=== PATIENT | male | born 1935 | race Caucasian/White ===

== ENCOUNTER → 2023-01-07 | Outpatient (CLI) | payer OTHER ==
[2023-01-07 09:53] LABS: Source, Urine Clean Catch
[2023-01-07 12:44] LABS: Bilirubin, Urine Neg (Neg); Blood, Urine 2+ (Neg); Glucose Qualitative, Urine 1+ (Neg); Ketones, Urine Neg (Neg); Leukocyte Esterase, Urine 3+ (Neg); Nitrite, Urine Neg (Neg); Protein, Urine 3+ (Neg); Urobilinogen, Urine NORM (Normal)
[2023-01-07 12:57] LABS: Appearance, Urine Hazy (Clear); Bacteria Rare /hpf; Color, Urine Yellow (P-Yellow); Squamous Epithelial Cells Rare /hpf (Few)
== END | disposition home or self-care (01) ==
LOC: LAB SHORT 09:00 → LAB 09:00
PROVIDERS: Nurse Practitioner Family
DX: I10 Essential (primary) hypertension (principal)
CPT/HCPCS: 81001; 87077; 87086; 87186

== ENCOUNTER 2023-01-19 16:08 | Inpatient (IN) | payer OTHER ==
[~2023-01-19] VITALS: Ht 182.9 cm; Wt 94.1 kg
[2023-01-19] MEDS ORDERED: LOSARTAN-HCTZ1 EACH PO (16:41)
[2023-01-19] MEDS ORDERED: AMLO5 PO (16:41)
[2023-01-19] MEDS ORDERED: ALLOPURINOL100 MG PO (16:41)
[2023-01-19] MEDS ORDERED: LOSARTAN-HCTZ1 EAC5 PO (16:41)
[2023-01-19 21:34] VITALS: BP 109/93
--- NOTE | 2023-01-19 23:38 | NUR ---
ADMIT NOTE 87 YR OLD MALE ADMITTED TO FLOOR FROM THE ED WITH DX OF ESRD. ED RN REPORTED PT HERE TO PLACE A DIALYSIS ACCESS IN THE AM. WILL BE NPO AFTER 0000. ALERT AND ORIENTED X 4. SOME WEAKNES, AGREE'S TO USE CALL LIGHT IF NEEDS TO GET OOB. ORIENTED TO USE OF CALL LIGHT. VSS. AFFECT CHEERFUL. VOICED HARD OF HEARING. CALL LIGHT IN REACH
[2023-01-20] VITALS (14 sets, daily range): BP systolic 109–177; BP diastolic 56–85
[2023-01-20 05:56] LABS: BASOPHILS ABSOLUTE AUTO 0.02 K/mm3 (0.00-0.23); BASOPHILS PERCENT AUTO 0 % (0-2); EOSINOPHILS ABSOLUTE AUTO 0.24 K/mm3 (0.00-0.68); EOSINOPHILS PERCENT AUTO 3 % (0-6); Hematocrit 29.2 % (37.0-53.0); Hemoglobin 9.6 g/dL (13.5-17.5); IMMATURE GRAN ABSOLUTE AUTO 0.04 K/mm3 (0.00-0.10); IMMATURE GRAN PERCENT AUTO 1 % (0-1); LYMPHOCYTES ABSOLUTE AUTO 0.93 K/mm3 (0.84-5.20); LYMPHOCYTES PERCENT AUTO 12 % (21-46); MONOCYTES ABSOLUTE AUTO 0.81 K/mm3 (0.16-1.47); MONOCYTES PERCENT AUTO 10 % (4-13); Mean Corpuscular HGB 30.6 pg (26.0-34.0); Mean Corpuscular HGB Conc 32.9 g/dL (31.5-36.5); Mean Corpuscular Volume 93 fL (80-100); Mean Platelet Volume 11.5 fL (9.1-12.4); NEUTROPHILS ABSOLUTE AUTO 6.04 K/mm3 (1.96-9.15); NEUTROPHILS PERCENT AUTO 75 % (41-73); Platelet Count 161 K/mm3 (150-400); RDW Standard Deviation 47.6 fL (35.1-46.3); Red Blood Cell Count 3.14 M/mm3 (4.30-5.90); White Blood Cell Count 8.08 K/mm3 (4.00-11.30)
[2023-01-20 07:00] LABS: Albumin, Blood 3.2 g/dL (3.4-5.0); Bilirubin, Total 0.4 mg/dL (0.1-1.0); Bun/Creatinine Ratio 12.2 (12.0-20.0); Calcium, Blood 8.6 mg/dL (8.5-10.1); Creatinine, Blood 7.97 mg/dL (0.60-1.20); Globulin, Blood 3.3 g/dL (2.2-4.0); Potassium, Blood 5.2 mmol/L (3.5-5.5); Total Protein, Blood 6.5 g/dL (6.4-8.2)
--- NOTE | 2023-01-20 17:35 | NUR ---
SHIFT SUMMARY A&OX3, CONFUSED, COOPERATIVE WITH CARE. PT REPORTED THAT HE SEES BEES ON THE CEILING AND THAT THEY ARE CRAWLING AROUND. HARD OF HEARING. DENIES ANY PAIN, CP/PRESSURE, DIZZINESS, HEADACHE, OR SOB. TELE REPORTS SINUS WITH BIGEMINAL PVC'S. PATIENT GOT AN IJV DIALYSIS CATHETER PLACED AND IS CURRENTLY RECEIVING DIALYSIS AT BEDSIDE. FAMILY PRESENT. PATIENT IS EATING DINNER. BED IN LOWEST POSITION. CALL LIGHT WITHIN REACH.
--- NOTE | 2023-01-20 19:19 | NUR ---
DIALYSIS COMPLETED. DIALYSIS NURSE VOICED SHE WOULD BE VACK IN THE AM. NO C/O PER PT. CALL LIGHT IN REACH
[2023-01-21] VITALS (18 sets, daily range): BP systolic 93–181; BP diastolic 57–83
--- NOTE | 2023-01-21 03:09 | NUR ---
DIESEL MECHANIC SUMMARY VSS. HAD DIALYSIS EARLIER IN THE DAY, POST PLACEMENT OF DIALYSIS PORT. NOTED VERBALIZATION OF SOME CONFUSION. BED ALARM ON FOR SAFETY REASONS. ANTIBIOTICS ADMINISTERED - SEE MAR FOR DETAILS. HOB ELEVATED. HAS BEEN RESTING QUIETLY WITH FEW INTERRUPTIONS THIS SHIFT. CALL LIGHT IN REACH. WILL CONTINUE TO MONITOR. DIALYSIS NURSE VOICED THAT SHE WOULD BE BACK IN THE AM APPARENTLY FOR ANOTHER EPISODE OF DIALYSIS.
[2023-01-21 06:01] LABS: Hematocrit 30.3 % (37.0-53.0)
[2023-01-21 06:35] LABS: Albumin, Blood 3.1 g/dL (3.4-5.0); Anion Gap 9 mmol/L (6-16); Blood Urea Nitrogen 70 mg/dL (8-24); Bun/Creatinine Ratio 10.7 (12.0-20.0); CO2, Blood 23 mmol/L (21-32); Calcium, Blood 8.5 mg/dL (8.5-10.1); Chloride, Blood 113 mmol/L (98-108); Creatinine, Blood 6.56 mg/dL (0.60-1.20); Glomerular Filtration Rate 8 (60-); Glucose, Blood 101 mg/dL (70-99); Magnesium, Blood 2.2 mg/dL (1.6-2.4); Phosphorus, Blood 6.1 mg/dL (2.5-4.9); Potassium, Blood 4.4 mmol/L (3.5-5.5); Sodium, Blood 145 mmol/L (136-145)
[2023-01-21 07:33] LABS: BASOPHILS ABSOLUTE AUTO 0.03 K/mm3 (0.00-0.23); BASOPHILS PERCENT AUTO 0 % (0-2); EOSINOPHILS ABSOLUTE AUTO 0.18 K/mm3 (0.00-0.68); EOSINOPHILS PERCENT AUTO 2 % (0-6); Hematocrit 30.3 % (37.0-53.0); Hemoglobin 10.1 g/dL (13.5-17.5); IMMATURE GRAN ABSOLUTE AUTO 0.04 K/mm3 (0.00-0.10); IMMATURE GRAN PERCENT AUTO 1 % (0-1); LYMPHOCYTES ABSOLUTE AUTO 0.95 K/mm3 (0.84-5.20); LYMPHOCYTES PERCENT AUTO 12 % (21-46); MONOCYTES ABSOLUTE AUTO 0.92 K/mm3 (0.16-1.47); MONOCYTES PERCENT AUTO 12 % (4-13); Mean Corpuscular HGB 30.5 pg (26.0-34.0); Mean Corpuscular HGB Conc 33.3 g/dL (31.5-36.5); Mean Corpuscular Volume 92 fL (80-100); Mean Platelet Volume 11.6 fL (9.1-12.4); NEUTROPHILS ABSOLUTE AUTO 5.88 K/mm3 (1.96-9.15); NEUTROPHILS PERCENT AUTO 73 % (41-73); Platelet Count 163 K/mm3 (150-400); RDW Coefficient Variation 14.1 % (11.7-14.2); RDW Standard Deviation 47.1 fL (35.1-46.3); Red Blood Cell Count 3.31 M/mm3 (4.30-5.90)
[2023-01-21 07:58] LABS: Anion Gap 11 mmol/L (6-16); Blood Urea Nitrogen 67 mg/dL (8-24); Bun/Creatinine Ratio 10.3 (12.0-20.0); CO2, Blood 22 mmol/L (21-32); Calcium, Blood 8.5 mg/dL (8.5-10.1); Chloride, Blood 112 mmol/L (98-108); Creatinine, Blood 6.51 mg/dL (0.60-1.20); Glomerular Filtration Rate 8 (60-); Glucose, Blood 97 mg/dL (70-99); Phosphorus, Blood 5.8 mg/dL (2.5-4.9); Potassium, Blood 4.1 mmol/L (3.5-5.5); Sodium, Blood 145 mmol/L (136-145)
--- NOTE | 2023-01-21 16:51 | NUR ---
SHIFT SUMMARY- PT IS A/O, PLESANT AND COOPERATIVE. HE IS EATING AND DRINKING WELL. HE RECIEVED DIALYSIS THIS SHIFT. WAS UNSTEADY AFTERWARDS. HE WENT FOR IMAGING THIS AFTERNOON. HIS BED IS IN THE LOW POSITION AND CALL LIGHT IS WITHIN REACH.
[2023-01-22] VITALS (15 sets, daily range): BP systolic 104–164; BP diastolic 23–83
--- NOTE | 2023-01-22 05:44 | NUR ---
PT A&O x3-4, FORGETFUL AT TIMES AND REPEATS THE SAME QUESTION. PT [facility] [place], PT STATED THAT HE DIDN'T BRING HIS HEARING AIDS TO THE HOSPITAL. PT SLEPT ON AND OF THROUGHOUT THE NIGHT. NO C/O PAIN OR DISCOMFORT. PT ON TELEMETRY, PT SR AT 65 BPM. PT CALLS APPROPRIATELY, ABLE TO MAKE NEEDS KNOWN. PT TRANSFERS WITH 1P SBA TO BSC. PT CONTINENT OF B/B. PT C/O LIGHTHEADEDNESS AT BEGNNING OF SHIFT. INCREASED WEAKNESS NOTED. BED ALARM TURNED ON, PT WEARING NON-SKID GRIPPER SOCKS. CALL LIGHT WITHIN REACH, WCTM.
[2023-01-22 06:28] LABS: Hematocrit 31.3 % (37.0-53.0); Hemoglobin 10.3 g/dL (13.5-17.5)
[2023-01-22 06:57] LABS: Albumin, Blood 3.1 g/dL (3.4-5.0); Anion Gap 8 mmol/L (6-16); Blood Urea Nitrogen 54 mg/dL (8-24); CO2, Blood 28 mmol/L (21-32); Calcium, Blood 8.6 mg/dL (8.5-10.1); Chloride, Blood 105 mmol/L (98-108); Creatinine, Blood 6.01 mg/dL (0.60-1.20); Glomerular Filtration Rate 9 (60-); Glucose, Blood 101 mg/dL (70-99); Magnesium, Blood 2.2 mg/dL (1.6-2.4); Phosphorus, Blood 5.7 mg/dL (2.5-4.9); Potassium, Blood 3.9 mmol/L (3.5-5.5); Sodium, Blood 141 mmol/L (136-145)
[2023-01-22 09:43] LABS: Influenza A, PCR NEGATIVE (NEGATIVE); Influenza B, PCR NEGATIVE (NEGATIVE); Resp Syncytial Virus, PCR NEGATIVE (NEGATIVE); SARS-Cov-2 (COVID-19) PCR, MMC NEGATIVE (NEGATIVE)
--- NOTE | 2023-01-22 17:04 | NUR ---
SHIFT SUMMARY; PATIENT TRANSFERRED TO ROOM 349 LATE THIS AFTERNOOON. REPORT FROM ROSSY REGALADO. PATIENT EXTREMELY HARD OF HEARING. SMILES AT STAFF AND JOKES HE IS AO X 4 ON ARRIVAL. VITAL SIGNS SHOW PULSE OF 38-84. PATIENT IS ASYMPTOMATIC. REMAINS ON TELE. NO SKIN ISSUES NOTED. PER REPORT JASSON IS WAITING FOR DIALYSIS BED AND FOR HIS HEPATITIS SCREENING TO COME BACK FROM SEND OUT LAB.
--- NOTE | 2023-01-22 17:43 | NUR ---
SHIFT SUMMARY- PT WENT FOR DIALYSIS THIS MORNING. AWAITING A CHAIR FOR DIALYSIS. HE IS EATING AND DRINKING WELL. THIS AFTERNOON, PT BECAME IMPULSIVE AND WAS TRYING TO GET OUT OF BED WITHOUT CALLING, HE WAS TRANSFERED TO THE SCU FOR CLOSER OBSERVAION. CONCERNS ABOUT HIM FALLING DUE TO DIZZINESS AFTER DIALYSIS.
[2023-01-22 22:22] LABS: Protein, Urine Quantitative 234.3 mg/dL (0.0-11.9)
[2023-01-23 00:09] LABS: HBSAG SCREEN Negative (Negative); HCV AB Non Reactive (Non Reactive); HEP A AB, IGM Negative (Negative); HEP B CORE AB, IGM Negative (Negative)
[2023-01-23 03:41] VITALS: BP 172/81
[2023-01-23 03:48] VITALS: BP 151/68
--- NOTE | 2023-01-23 03:56 | NUR ---
REPORT RECEIVED VERIFIED VERY PLEASANT MAN WHO IS VERY [place], CALLS APPROPRIATLY AND CALLS WHEN NEEDING TO USE THE BATHROOM. RIGHT CHEST WALL CATH INTACT. 0300 ASSISTED PT TO BATHROOM, PT WAS FEELING LIGHT HEADED AND I NOTICED WAS ABOUT TO PASSOUT SO I ASSISTED HIM TO FLOOR WHERE HE PROMPTLY LOST CONSCIENCENESS. RAPID RESPONSE WAS CALL BUT PT QUICKLY REGAINED CONSCIENCNESS. VITALS WERE STABLE AND THERE WAS NO C/O PAIN PT SUSTAINED FROM ANY INJURY DURING EVENT, PT IS NOW FEELING MUCH BETTER AND STATED THIS HAPPENS SOMETIMES AND THAT HE SHOULD HAVE SPENT MORE TIME ON SIDE OF BED. WILL PASS THIS ALONG
[2023-01-23 05:43] LABS: Hematocrit 31.9 % (37.0-53.0); Hemoglobin 10.1 g/dL (13.5-17.5)
[2023-01-23 06:41] LABS: Albumin, Blood 2.8 g/dL (3.4-5.0); Anion Gap 8 mmol/L (6-16); Blood Urea Nitrogen 45 mg/dL (8-24); Bun/Creatinine Ratio 8.3 (12.0-20.0); CO2, Blood 28 mmol/L (21-32); Calcium, Blood 8.4 mg/dL (8.5-10.1); Chloride, Blood 104 mmol/L (98-108); Creatinine, Blood 5.45 mg/dL (0.60-1.20); Glomerular Filtration Rate 10 (60-); Glucose, Blood 165 mg/dL (70-99); Magnesium, Blood 2.1 mg/dL (1.6-2.4); Phosphorus, Blood 4.5 mg/dL (2.5-4.9); Sodium, Blood 140 mmol/L (136-145)
[2023-01-23 08:16] VITALS: BP 115/62
[2023-01-23 14:10] VITALS: BP 99/63
[2023-01-23 16:58] LABS: Anti-Xa UFH, PHA Monitoring <0.10 IU/mL; International Normalized Ratio 1.07; Prothrombin Time Results 11.2 Sec (9.7-11.5)
[2023-01-23 19:22] VITALS: BP 115/58
--- NOTE | 2023-01-23 19:29 | NUR ---
SHIFT SUMMARY; PATIENT HAS NO ACUTE CHANGES NOTED IN CONDITON TODAY. DOES STILL HAVE DIZZY SPELLS WHEN STANDING AND TURNING QUICKLY. HE IS ON A HEPARIN DRIP. VERIFIED WITH MICHAEL REGALADO. ECHO DONE TODAY NO RESULTS OF YET. 2ND IV START SO PAITENT CAN RECEIVE IV ANTIBIOTICS AT SAME TIME HEPARIN.
--- NOTE | 2023-01-23 22:20 | NUR ---
CREDENTIALING SPECIALIST CALLED DR. SUBRAMANIAN CALLED AND ORDERED LOW DOSE ASPIRIN DAILY FOR THIS PATIENT. I DID ENTER THAT ORDER. HE DOES ALSO WANT A ZIO PATCH ORDERED, BUT I AM UNABLE TO ENTER THAT ORDER. I DID INFORM HIM THAT I MIGHT NOT BE ABLE TO ORDER THAT ZIO PATCH. I WILL INFORM DAY SHIFT.
[2023-01-24] VITALS (13 sets, daily range): BP systolic 110–142; BP diastolic 40–77
[2023-01-24 01:07] LABS: BASOPHILS ABSOLUTE AUTO 0.04 K/mm3 (0.00-0.23); BASOPHILS PERCENT AUTO 0 % (0-2); EOSINOPHILS ABSOLUTE AUTO 0.19 K/mm3 (0.00-0.68); EOSINOPHILS PERCENT AUTO 2 % (0-6); Hematocrit 30.4 % (37.0-53.0); Hemoglobin 9.8 g/dL (13.5-17.5); IMMATURE GRAN ABSOLUTE AUTO 0.09 K/mm3 (0.00-0.10); IMMATURE GRAN PERCENT AUTO 1 % (0-1); LYMPHOCYTES ABSOLUTE AUTO 1.24 K/mm3 (0.84-5.20); LYMPHOCYTES PERCENT AUTO 11 % (21-46); MONOCYTES ABSOLUTE AUTO 1.54 K/mm3 (0.16-1.47); MONOCYTES PERCENT AUTO 14 % (4-13); Mean Corpuscular HGB 30.7 pg (26.0-34.0); Mean Corpuscular HGB Conc 32.2 g/dL (31.5-36.5); Mean Corpuscular Volume 95 fL (80-100); Mean Platelet Volume 11.4 fL (9.1-12.4); NEUTROPHILS PERCENT AUTO 73 % (41-73); Platelet Count 132 K/mm3 (150-400); RDW Coefficient Variation 13.4 % (11.7-14.2); RDW Standard Deviation 47.1 fL (35.1-46.3); Red Blood Cell Count 3.19 M/mm3 (4.30-5.90)
[2023-01-24 01:24] LABS: Albumin, Blood 2.5 g/dL (3.4-5.0); Anion Gap 10 mmol/L (6-16); Blood Urea Nitrogen 61 mg/dL (8-24); Bun/Creatinine Ratio 9.5 (12.0-20.0); CO2, Blood 26 mmol/L (21-32); Calcium, Blood 8.1 mg/dL (8.5-10.1); Chloride, Blood 103 mmol/L (98-108); Creatinine, Blood 6.39 mg/dL (0.60-1.20); Glomerular Filtration Rate 8 (60-); Glucose, Blood 106 mg/dL (70-99); Magnesium, Blood 2.1 mg/dL (1.6-2.4); Phosphorus, Blood 5.3 mg/dL (2.5-4.9); Potassium, Blood 3.3 mmol/L (3.5-5.5); Sodium, Blood 139 mmol/L (136-145)
--- NOTE | 2023-01-24 04:16 | NUR ---
SHIFT SUMMARY ADMITTED FOR ESRD. FULL CODE. HE WAS DOCTOR REFERED FOR MEDIPORT PLACEMENT AND NEW DIALYSIS, THIS WAS PERFORMED ON 01/20/23. CARDIOLOGY CONSULTED FOR NEW ONSET AFLUTTER. SEE CARDIOLOGY RECOMMENDATIONS. MASS ON KIDNEY REQUIRING CT SCAN WHEN POSSIBLE, MORE DIALYSIS MAY BE REQUIRED FIRST. HEPARIN DRIP INFUSING - PHARMACY MANAGED. PERIODS OF SYNCOPE AND DEMENTIA REPORTED IN HIS RECENT HISTORY. EXTREMELY [place]. HE DID SLEEP THROUGHOUT SHIFT. CARDIOLOGY WOULD LIKE A ZIO PATCH MONITOR PLACED FOR THIS PATIENT, BUT NURSING STAFF IS UNABLE TO PUT THIS ORDER IN. TELEMETRY: AFLUTTER @ 68 BPM.
[2023-01-24] MEDS ORDERED: ASPI81CH PO (13:19)
[2023-01-24] MEDS ORDERED: Calcium Acetat667 MG PO (13:22)
[2023-01-24] MEDS ORDERED: B-COMPLEX WITH1 EAC2 PO (13:22)
[2023-01-24] MEDS ORDERED: LOSA25 PO (13:23)
[2023-01-24] MEDS ORDERED: MIDO5 PO (13:24)
--- NOTE | 2023-01-24 18:26 | NUR ---
PT DISCHARGED HOME. DISCUSSED NEED TO SCHEDULE [facility] PLACEMENT WITH [facility] ON FOLLOWING THURSDAY. IF THERE IS AN ISSUE TO THEN FOLLOW UP WITH [facility] ON THURSDAY FOR ZOL PLACEMENT. EMPHASIZED IMPORTANCE OF MONITORING BLOOD PRESSURE AND HEART RATE OFTEN, AND ESPECIALLY BEFORE MEDICATION ADMINISTRATION. NO QUESTIONS OR CONCERNS AT THIS TIME
[2023-01-27 14:10] LABS: IMMUNOGLOBULIN A, QN, SERUM 412 mg/dL (61-437); IMMUNOGLOBULIN G, QN, SERUM 1043 mg/dL (603-1613); IMMUNOGLOBULIN M, QN, SERUM 38 mg/dL (15-143)
[2023-01-28 13:08] LABS: ANTIMYELOPEROXIDASE (MPO) ABS <0.2 units (0.0-0.9); ANTIPROTEINASE 3 (PR-3) ABS <0.2 units (0.0-0.9); ATYPICAL PANCA <1:20 titer (Neg:<1:20); CYTOPLASMIC (C-ANCA) <1:20 titer (Neg:<1:20); PERINUCLEAR (P-ANCA) <1:20 titer (Neg:<1:20)
== END 2023-01-24 16:22 | disposition home or self-care (01) | DRG 291 ==
LOC: ER 16:08 → ERHOLD 16:09 → MEDS 16:09
PROVIDERS: Internal Medicine Nephrology; ADMIT Internal Medicine
PROC: 0JH63XZ Insertion of Tunneled Vascular Access Device into Chest Subcutaneous Tissue and Fascia, Percutaneous Approach (ICD-10-PCS; principal; 2023-01-20)
PROC: 02HV33Z Insertion of Infusion Device into Superior Vena Cava, Percutaneous Approach (ICD-10-PCS; 2023-01-20)
PROC: 5A1D70Z Performance of Urinary Filtration, Intermittent, Less than 6 Hours Per Day (ICD-10-PCS; 2023-01-20)
PROC: B24BZZZ Ultrasonography of Heart with Aorta (ICD-10-PCS; 2023-01-23)
DX: I13.2 Hypertensive heart and chronic kidney disease with heart failure and with stage 5 chronic kidney disease, or end stage renal disease (principal); N18.6 End stage renal disease; E87.0 Hyperosmolality and hypernatremia; I48.92 Unspecified atrial flutter; N25.81 Secondary hyperparathyroidism of renal origin; N39.0 Urinary tract infection, site not specified; E87.20 Acidosis, unspecified; N17.9 Acute kidney failure, unspecified; N28.89 Other specified disorders of kidney and ureter; M10.9 Gout, unspecified; E78.5 Hyperlipidemia, unspecified; D63.1 Anemia in chronic kidney disease; I50.9 Heart failure, unspecified; E87.5 Hyperkalemia; E88.09 Other disorders of plasma-protein metabolism, not elsewhere classified; R00.1 Bradycardia, unspecified; E87.6 Hypokalemia; I95.9 Hypotension, unspecified; I48.91 Unspecified atrial fibrillation; Z11.52 Encounter for screening for COVID-19
CPT/HCPCS: 0241U; 36415; 36558; 71045; 74176; 76770; 76937; 77001; 80053; 80069; 80074; 81050; 83516; 83520; 83735; 84156; 85014; 85018; 85025; 85520; 85610; 85730; 86037; 86038; 86317; 86334; 86335; 93005; 93010; 93306; 96365; 97162; 97530; 99152; 99153; 99284-25; A9270; C1750; C1769; C1894; J0696; J0881; J1644; J3010; J3480; J7040; J7050; P9047

== ENCOUNTER 2023-02-19 11:29 | Emergency (ER) | payer OTHER ==
[~2023-02-19] VITALS: Ht 188 cm; Wt 95.2 kg
[~2023-02-19 11:29] MED LIST: ALLOPURINOL100 MG PO; AMLO5 PO; ASPI81CH PO; B-COMPLEX WITH1 EAC2 PO; Calcium Acetat667 MG PO; LOSA25 PO; LOSARTAN-HCTZ1 EAC5 PO; LOSARTAN-HCTZ1 EACH PO; MIDO5 PO
[2023-02-19 12:49] LABS: BASOPHILS ABSOLUTE AUTO 0.03 K/mm3 (0.00-0.23); BASOPHILS PERCENT AUTO 0 % (0-2); EOSINOPHILS ABSOLUTE AUTO 0.08 K/mm3 (0.00-0.68); EOSINOPHILS PERCENT AUTO 1 % (0-6); Hematocrit 34.8 % (37.0-53.0); Hemoglobin 11.1 g/dL (13.5-17.5); IMMATURE GRAN PERCENT AUTO 1 % (0-1); LYMPHOCYTES ABSOLUTE AUTO 0.87 K/mm3 (0.84-5.20); LYMPHOCYTES PERCENT AUTO 9 % (21-46); MONOCYTES ABSOLUTE AUTO 0.69 K/mm3 (0.16-1.47); MONOCYTES PERCENT AUTO 7 % (4-13); Mean Corpuscular HGB 30.6 pg (26.0-34.0); Mean Corpuscular HGB Conc 31.9 g/dL (31.5-36.5); Mean Corpuscular Volume 96 fL (80-100); Mean Platelet Volume 11.4 fL (9.1-12.4); NEUTROPHILS ABSOLUTE AUTO 8.41 K/mm3 (1.96-9.15); NEUTROPHILS PERCENT AUTO 83 % (41-73); Platelet Count 157 K/mm3 (150-400); RDW Coefficient Variation 12.7 % (11.7-14.2); RDW Standard Deviation 45.3 fL (35.1-46.3); Red Blood Cell Count 3.63 M/mm3 (4.30-5.90); White Blood Cell Count 10.18 K/mm3 (4.00-11.30)
[2023-02-19 12:51] LABS: Albumin, Blood 2.9 g/dL (3.4-5.0); Albumin/Globulin Ratio 0.7 (0.8-1.8); Bilirubin, Total 0.3 mg/dL (0.1-1.0); Bun/Creatinine Ratio 7.2 (12.0-20.0); Calcium, Blood 8.6 mg/dL (8.5-10.1); Creatinine, Blood 4.3 mg/dL (0.60-1.20); Globulin, Blood 4.3 g/dL (2.2-4.0); Potassium, Blood 4.4 mmol/L (3.5-5.5); Total Protein, Blood 7.2 g/dL (6.4-8.2)
[2023-02-19 15:15] VITALS: BP 148/60
[2023-02-19] MEDS ORDERED: MIDO5 PO (15:21)
== END 2023-02-19 15:29 | disposition home or self-care (01) ==
LOC: ER 11:29
PROVIDERS: Student in an Organized Health Care Education/Training Program
DX: I95.1 Orthostatic hypotension (principal); N18.6 End stage renal disease; Z99.2 Dependence on renal dialysis; Z88.6 Allergy status to analgesic agent; Z88.8 Allergy status to other drugs, medicaments and biological substances
CPT/HCPCS: 80053; 84484; 85025; 93005; 93010; 96360; 99284-25; A9270; J7030